=== PATIENT | male | born 1960 | race Caucasian/White ===

== ENCOUNTER 2025-03-17 12:20 | Emergency (ER) | payer SELFPAY ==
[2025-03-17 12:27] VITALS: BP 139/92; PULSE 74; RESP 20; TEMP 36.4; O2SAT 100
--- NOTE | 2025-03-17 13:02 | PC.NURSE ---
Pt states he feels better after going to the restroom and is declining to be seen. Pt states the issue resolved and he feels fantastic. Pt ambulated out in [facility].
== END 2025-03-17 13:40 | disposition left against medical advice (07) ==
LOC: ANHED 13:37
PROVIDERS: Emergency Provider Emergency Medicine
DX: R10.9 Unspecified abdominal pain (principal)
CPT/HCPCS: 99199

== ENCOUNTER 2025-03-17 19:09 | Emergency (ER) | payer SELFPAY ==
[2025-03-17] VITALS (17 sets, daily range): BP systolic 144–176; BP diastolic 77–102; PULSE 59–85; RESP 13–32; TEMP 36.4; O2SAT 97–100
--- NOTE | ~2025-03-17 | CT_ITS ---
CLINICAL INDICATION: Right lower quadrant pain and right flank pain COMPARISON: . TECHNIQUE: Multiple contiguous axial images of the abdomen and pelvis were performed without the admi nistration of intravenous contrast The dose-length product (DLP) was 317.23 mGy-cm. Automated exposure control and iterative reconstruction technique were employed. FINDINGS/OBSERVATIONS: Visualized lower thorax: The bilateral lung bases are clear. The heart is of normal size, without pericardial effusion. Small hiatal hernia is present. Liver: The liver demonstrates homogeneous attenuation and is not enlarged. Gallbladder and biliary system: The gallbladder is only minimally distended, and otherwise unremarkable. Pancreas: Limited evaluation of the pancreas secondary to the lack of intravenous contrast. Spleen: The spleen demonstrates homogeneous attenuation and is not enlarged. Kidneys: Mild right-sided hydroureteronephrosis extending to the mid right ureter where a 4 mm calculus is amdaa ntified. Adrenal glands: Unremarkable. Gastrointestinal tract: Fecal stasis within the colon. Appendix: The air-filled appendix is of normal caliber (coronal series, images 63 and 64) Vasculature: Unremarkable. Lymph nodes: Limited evaluation without intravenous contrast. Pelvic structures: The bladder is only minimally distended, and otherwise unremarkable. The prostate gland is not enlarged. Body wall and musculoskeletal: Small fat-containing umbilical hernia. Degenerative disease, without acute fracture. IMPRESSION: Right-sided hydroureteronephrosis secondary to a 4 mm calculus in the mid right ureter. Normal appendix. Reviewed, dictated and finalized at location A.
--- NOTE | ~2025-03-17 | XR_ITS ---
EXAMINATION: XR abdomen/kub 1V DATE: 03/18/2025 01:13 INDICATION: Right ureteral stone TECHNIQUE: A supine view of the abdomen on 2 radiographs was obtained. COMPARISON: CT dated 03/17/2025 FINDINGS: Small density representing the 2-3 mm mid right ureteral stone projecting over the right psoas muscle between the tips of the right transverse processes of L4 and L5. No dilated loops of gas-filled kirk l to suggest obstruction. IMPRESSION: 1. Small density likely representing the 2-3 mm mid right ureteral stone. Reviewed, dictated and finalized at location A.
[2025-03-17] MEDS: ONDANSETRON HCL ODT 4 MG TABLET PO (20:02)
[2025-03-17] MEDS: oxyCODONE HCL (*CRX) 5 MG TAB IR PO (20:02)
[2025-03-17 21:08] LABS: Basophils Absolute Auto 0.1 K/mm3 (0.0-0.1); Basophils Percent Auto 0.6 % (0.2-1.2); Eosinophils Absolute Auto 0.2 K/mm3 (0-0.3); Eosinophils Percent Auto 2.1 % (0-4.4); Hematocrit 40.9 % (42.0-52.0); Hemoglobin 14.2 g/dL (14.0-18.0); Immature Granulocyte Absolute 0.03 K/mm3 (0.00-0.031); Immature Granulocyte Percent A 0.3 % (0-0.5); Lymphocytes Absolute Auto 2.26 K/mm3 (0.9-3.2); Lymphocytes Percent Auto 21.5 % (18.3-44.2); Mean Corpuscular HGB Conc 34.7 g/dl (32-36); Mean Corpuscular Hemoglobin 29.2 pg (26-34); Mean Corpuscular Volume 84.2 fl (80-100); Mean Platelet Volume 10.9 fl (7.4-10.4); Monocytes Absolute Auto 0.9 K/mm3 (0.1-0.6); Monocytes Percent Auto 8.8 % (2.6-8.5); Neutrophils Percent Auto 66.7 % (45.5-73.1); Platelet Count Result 235 k/mm3 (150-375); Red Blood Count 4.86 M/mm3 (4.6-6.20); Red Cell Distribution Width 12.9 % (11.5-14.5); White Blood Count 10.5 K/mm3 (4.5-10.0)
[2025-03-17 21:17] LABS: Alanine Aminotransferase 22 U/L (6-50); Albumin Level 4.7 g/dL (3.5-5.1); Alkaline Phosphatase 93 U/L (38-126); Anion Gap 16 mmol/L (4-12); Aspartate Amino Transferase 30 U/L (17-59); Bilirubin,Total 1.8 mg/dL (0.2-1.3); Blood Urea Nitrogen 16 mg/dL (9-20); Calcium 9.7 mg/dL (8.4-10.2); Carbon Dioxide 20 mmol/L (22-30); Chloride 105 mmol/L (98-107); Estimated Glomerular Filt Rate 46; Glucose 177 mg/dL (65-110); Lipase 68 U/L (23-300); Potassium 3.3 mmol/L (3.4-5.0); Sodium 141 mmol/L (137-145); Total Protein 7.9 g/dL (6.3-8.2)
--- NOTE | 2025-03-17 21:54 | PC.NURSE ---
PA notified of patients request for pain medication and nausea medication.
[2025-03-17] MEDS: SODIUM CHLORIDE 0.9% IV 1,000 ML 999 ML IV CONT (22:08)
[2025-03-17] MEDS: LORazepam INJ (*CRX) 2 MG/ML VIAL 0.5 MG IV PUSH (22:30)
[2025-03-17] MEDS: ONDANSETRON INJ 4 MG/2 ML VIAL IV PUSH (22:30)
--- NOTE | 2025-03-17 22:30 | ED_ITS ---
HPI - Abdominal Pain General Chief Complaint: Abdominal Pain Stated Complaint: right abdominal pain Time Seen by Provider: 03/17/25 21:17 History of Present Illness HPI narrative: 64-year-old male with a reported history of kidney stones 20 years ago presents to the emergency department for right-sided flank pain and right lower quadrant abdominal pain that developed today. Patient states the pain started his right flank and is now migrated to his right lower quadrant. He describes the pain as sharp and states it waxes and wanes. He reports associated nausea and retching but no vomiting. He denies dysuria, hematuria, fever. Denies prior abdominal surgeries or urologic procedures. Related Data Allergies Allergy/AdvReac Type Severity Reaction Status Date / Time acetaminophen (From NyQuil) Allergy Severe Swelling Verified 03/17/25 21:01 of Lip/Tongue/Throat dextromethorphan (From Allergy Severe Swelling Verified 03/17/25 21:01 NyQuil) of Lip/Tongue/Throat doxylamine (From NyQuil) Allergy Severe Swelling Verified 03/17/25 21:01 of Lip/Tongue/Throat pseudoephedrine (From NyQuil) Allergy Severe Swelling Verified 03/17/25 21:01 of Lip/Tongue/Throat metoclopramide (From Reglan) Allergy Intermediate Hives Verified 03/17/25 21:01 Review of Systems 2 Review of Systems: All systems reviewed & are unremarkable except as noted in HPI and below Exam 2 Narrative: GENERAL: Well-appearing, well-nourished, and in no acute distress. HEAD: Normocephalic, atraumatic. EYES: EOMI. ENT: Nares clear, no rhinorrhea or epistaxis. Mucous membranes moist. NECK: Supple. CHEST: Clear to auscultation. No respiratory distress. HEART: Regular rate and rhythm. No murmur heard. Normal peripheral pulses. ABDOMEN: Soft, nontender, nondistended, normal active bowel sounds. No rebound, guarding or rigidity. Minimal right CVA tenderness EXTREMITIES: Normal range of motion. No edema. SKIN: Warm, dry, no rash. NEURO: No focal deficits. Alert and oriented x3 Course Vital Signs Vital signs: Vital Signs Temperature 97.5 F L 03/17/25 19:32 Pulse Rate 72 03/17/25 19:32 Respiratory Rate 24 H 03/17/25 19:32 Blood Pressure 158/77 H 03/17/25 19:32 Pulse Oximetry 100 03/17/25 19:32 Oxygen Delivery Room Air 03/17/25 19:32 Temperature 97.5 F L 03/17/25 19:32 Pulse Rate 81 03/18/25 01:01 Respiratory Rate 17 03/18/25 01:01 Blood Pressure 127/88 03/18/25 01:01 Pulse Oximetry 97 03/18/25 01:01 Oxygen Delivery Room Air 03/17/25 19:32 MDM - Abdominal Pain MDM Narrative Medical decision making narrative: 64-year-old male with reported history of kidney stones 20 years ago presents to emergency department for right-sided flank pain that radiates into his right lower quadrant that started today. Vitals with elevated blood pressure. Patient is afebrile and nontoxic appearing. Exam is significant for the above. CBC with mild leukocytosis of 10.5, no anemia. Chemistries with mild hypokalemia 3.3 and evidence of dehydration with a bicarb of 20, anion gap of 16 and creatinine of 1.54. Fluids provided and potassium orally repleted. Lipase is within normal limits. Urinalysis with 21-50 rbc's, trace leuk esterase, no white blood cells, no bacteria, no nitrates. CT abd/pelvis shows IMPRESSION: Right-sided hydroureteronephrosis secondary to a 4 mm calculus in the mid right ureter. Normal appendix. Patient updated on results. He received IV fluids, oxycodone and Zofran. He did have persistent retching as was given another dose of Zofran. He also reported that he retches when he gets anxious so was given a dose of Ativan and now his retching has resolved. He states he feels significantly improved and is resting comfortably in exam bed with no pain or nausea. He is tolerating p.o. intake. He is requesting to be discharged home. Given mild CARL, I did consult urologist, Dr. Carney, who feels as long as patient's pain is controlled and he can tolerate p.o. intake, he is safe to be discharged home. Again the patient is tolerating p.o. intake and remains resting comfortably in exam bed. Dr. Carney does not feel that antibiotics are indicated for the trace leuk esterase as this is likely inflammatory in nature. The patient was updated on the plan. He was given referral for Urology and prescriptions for hydrocodone, Zofran and tamsulosin. He was given strict ED return precautions. He and his son-in-law bedside are agreeable with the plan verbalized understanding. Discharged in stable condition. Lab Data 03/17/25 21:01 03/17/25 21:01 Labs: Lab Results 03/17/25 03/17/25 Range/Units 21:01 23:15 WBC 10.5 H (4.5-10.0) K/mm3 RBC 4.86 (4.6-6.20) M/mm3 Hgb 14.2 (14.0-18.0) g/dL Hct 40.9 L (42.0-52.0) % MCV 84.2 (80-100) fl MCH 29.2 (26-34) pg MCHC 34.7 (32-36) g/dl RDW 12.9 (11.5-14.5) % Plt Count 235 (150-375) k/mm3 MPV 10.9 H (7.4-10.4) fl Immature Gran % (Auto) 0.3 (0-0.5) % Neut % (Auto) 66.7 (45.5-73.1) % Lymph % (Auto) 21.5 (18.3-44.2) % [place] % (Auto) 8.8 H (2.6-8.5) % Eos % (Auto) 2.1 (0-4.4) % Baso % (Auto) 0.6 (0.2-1.2) % Lymph # (Auto) 2.26 (0.9-3.2) K/mm3 [place] # (Auto) 0.9 H (0.1-0.6) K/mm3 Eos # (Auto) 0.2 (0-0.3) K/mm3 Baso # (Auto) 0.1 (0.0-0.1) K/mm3 Abs Immat Gran (auto) 0.03 (0.00-0.031) K/mm3 Absolute Neuts (auto) 7.0 H (1.3-6.7) K/mm3 Absolute Nucleated RBC 0.000 (0.0-0.012) K/mm3 Nucleated RBC % 0.0 (0.0-0.2) % Sodium 141 (137-145) mmol/L Potassium 3.3 L (3.4-5.0) mmol/L Chloride 105 (98-107) mmol/L Carbon Dioxide 20 L (22-30) mmol/L Anion Gap 16 H (4-12) mmol/L BUN 16 (9-20) mg/dL Creatinine 1.54 H (0.7-1.3) mg/dL Estim Creat Clear Calc Not Reportable Estimated GFR 46 L (59 - ) Glucose 177 H (65-110) mg/dL Calcium 9.7 (8.4-10.2) mg/dL Magnesium 1.9 (1.6-2.3) mg/dL Total Bilirubin 1.8 H (0.2-1.3) mg/dL AST 30 (17-59) U/L ALT 22 (6-50) U/L Alkaline Phosphatase 93 (38-126) U/L Total Protein 7.9 (6.3-8.2) g/dL Albumin 4.7 (3.5-5.1) g/dL Lipase 68 (23-300) U/L Urine Color Dark yellow (Yellow) Urine Appearance Cloudy H (Clear) Urine pH 5.5 (5.0-9.0) Ur Specific [place] 1.023 (1.001-1.035) Urine Protein Trace (Negative) mg/dL Urine Glucose (UA) Negative (Negative) mg/dL Urine Ketones Trace H (Negative) mg/dL Ur Blood (Man) 3+ H (Negative) Urine Nitrate Negative (Negative) Urine Bilirubin Negative (Negative) Urine Urobilinogen 1.0 (<2.0) mg/dL Leukocyte Esterase Rfl Trace H (Negative) ASHWIN/UL Urine RBC 21-50 H (0-2) /hpf Urine WBC 0-5 (0-3) /hpf Ur Squamous Epith Cells Occasional (Few) /hpf Urine Bacteria None seen /hpf Urine Casts 0-2 Urine Opiates Screen Negative (Negative) Urine Methadone Screen Negative (Negative) Ur Barbiturates Screen Negative (Negative) Ur Phencyclidine Scrn Negative (Negative) Ur Amphetamine Screen Negative (Negative) U Benzodiazepines Scrn Negative (Negative) Urine Cocaine Screen Negative (Negative) U Cannabinoids Screen Negative (Negative) Imaging Data Radiologist's impression: ITS Impressions Abdomen/Pelvis CT 03/17/25 22:39 IMPRESSION: Right-sided hydroureteronephrosis secondary to a 4 mm calculus in the mid right ureter. Normal appendix. Discharge Plan Discharge Clinical Impression: Calculus of right ureter, Acute hypokalemia, Dehydration Patient Disposition: Home Condition: Stable Instructions: Antibiotic Form, Ureteral Stones (ED) Additional Instructions: You were evaluated in the emergency department for abdominal pain and flank pain. You were found have a kidney stone. Your also found to be dehydrated. Please make sure to drink plenty fluids including water, Gatorade and Pedialyte. Please follow-up closely with urologist. Take oxycodone as needed for pain, ondansetron as needed for nausea and vomiting and tamsulosin daily as discussed to help pass the stone. Return to the emergency department if you develop a fever, worsening or intolerable pain, your unable to tolerate food or fluids, or other concerning symptoms. Patient Language: Andorran Prescriptions: New oxycodone 5 mg capsule 5 mg PO Q6H PRN (Reason: pain) Qty: 14 0RF ondansetron 4 mg tablet,disintegrating 4 mg PO Q8H Qty: 14 0RF tamsulosin [Flomax] 0.4 mg capsule 0.4 mg PO HS Qty: 14 0RF Follow-up/Referrals: PHYSICIAN,DIRECTOR OF PATIENT CARE [Primary Care Provider] - Lokesh Carney MD [Physician] -
--- NOTE | 2025-03-17 22:31 | PC.NURSE ---
Patient was taken to CT via stretcher. This RN was called by manufacturing technology professor and informed patient was actively vomiting and c/o anxiety. PA notified and orders placed. This RN went to give meds to patient in CT, ativan dose verified by this RN and LALA Cline. Patient was given 4mg zofran IVP and 0.5mg ativan IVP.
[2025-03-17] MEDS: POTASSIUM CHLORIDE 20 MEQ PACKET (FOR LIQUID) PO (22:39)
[2025-03-17 23:34] LABS: Add Urine Microscopic? YES; Appearance Urine Cloudy (Clear); Bacteria Urine None Seen /hpf; Bilirubin Urine Negative (Negative); Blood Urine 3+ (Negative); Color Urine Dark Yellow (Yellow); Glucose Urine UA Negative (Negative); Ketones Urine Trace mg/dL (Negative); Leukocyte Esterase Ur Trace LEU/UL (Negative); Nitrate Urine Negative (Negative); Non Pathogenic Casts 0-2; Protein Urine Trace mg/dL (Negative); RBC Urine 21-50 /hpf (0-2); Specific Grav Ur 1.023 (1.001-1.035); Squamous Epithelial Cell Urine Occasional /hpf (Few); WBC Urine 0-5 /hpf (0-3); pH Urine 5.5 (5.0-9.0)
[2025-03-17 23:45] LABS: Amphetamine Screen Urine Negative (Negative); Barbiturate Screen Urine Negative (Negative); Benzodiazepines Screen Urine Negative (Negative); Cannabinoid Screen Urine Negative (Negative); Cocaine Screen Urine Negative (Negative); Methadone Screen Urine Negative (Negative); Opiate Screen Urine Negative (Negative); Phencyclidine Screen Urine Negative (Negative)
[2025-03-18] VITALS (7 sets, daily range): BP systolic 127–145; BP diastolic 88–96; PULSE 74–86; RESP 10–18; O2SAT 97–100
[2025-03-18 00:07] LABS: Magnesium 1.9 mg/dL (1.6-2.3)
== END 2025-03-18 01:37 | disposition home or self-care (01) ==
PROVIDERS: Emergency Medicine; Emergency Provider Physician Assistant
DX: N13.2 Hydronephrosis with renal and ureteral calculous obstruction (principal); E87.6 Hypokalemia; E86.0 Dehydration; Z87.442 Personal history of urinary calculi
CPT/HCPCS: 36415; 74018; 74176; 80053; 80307; 81001; 83690; 83735; 85025; 96361; 96374; 96375; 96376; 99284; A9270; J2060; J2405; J7030